=== PATIENT | female | born 1985 | race Caucasian/White ===

== ENCOUNTER 2022-12-05 10:18 | Day surgery (SDC) | payer OTHER, SELFPAY ==
[2022-12-05] VITALS (13 sets, daily range): BP systolic 80–127; BP diastolic 37–72; PULSE 54–70; RESP 12–18; TEMP 36.3–37.1; O2SAT 98–100; BMI 21.5
--- NOTE | 2022-12-05 11:00 | CRLHL7_ITS ---
For Patients: As a result of the Century Cures Act, medical imaging exams and procedure reports are released immediately into your electronic medical record. You may view this report before your referring provider. If you have questions, please contact your health care provider. INDICATION: VAGINAL BLEEDING/CRAMPING TODAY HISTORY: Vaginal bleeding and cramping. COMPARISON: None. TECHNIQUE: Pelvic ultrasound. Endovaginal imaging of the pelvis was obtained. Color Doppler was performed to evaluate blood flow to the ovaries. FINDINGS: There is no intrauterine or extrauterine gestational sac. There is a moderate amount of free fluid in the pelvis. This is primarily anechoic. Some of the fluid has low level internal echoes, as seen on series 1, image [id number]. The right ovary measures 3.9 x 2.2 x 2.9 cm. Probable corpus luteum cyst in the right ovary. Endometrial complex measures 14 mm. The left ovary measures 3.2 x 2.3 x 2.7 cm. On cine imaging, there is indeterminate left adnexal mass, which appears extra ovarian. This is seen on series 1, image [id number], and measures approximately 2 cm in dimension. These findings are suspicious for an ectopic . Suggest gynecologic consultation, and correlation with serum beta HCG. IMPRESSION: 1. No intrauterine gestational sac. 2. Indeterminate extraovarian left adnexal mass, with free fluid in the rectovaginal pouch of Vj. These findings are suspicious for an ectopic . Suggest correlation with serum beta HCG and gynecologic consultation. 3. Per my discussion with Dr. Nino, ED, 12/05/22, 1217 pm, serum beta HCG is pending. The gynecologic service has been contacted. Dictated by Heriberto Louis MD @ 12/05/2022 12:21:22 PM Dictated by: Heriberto Louis MD @ 12/05/2022 12:21:31 (Electronically Signed)
--- NOTE | 2022-12-05 11:01 | ED_ITS ---
HPI - General Adult General Chief complaint: Vaginal Bleeding Stated complaint: 6wks , possible miscarriage Time Seen by Provider: 12/05/22 10:51 History of Present Illness HPI narrative: This 37-year-old female comes in stating that she is about 6 weeks . This morning she had vaginal bleeding with cramping. She had some spotting last week that did not include cramping. This is her 2nd . She has twins that are 2 years old. She is otherwise in good health. Related Data Home Medications Medication Instructions Recorded Confirmed No Known Home Medications 12/05/22 12/05/22 Allergies Allergy/AdvReac Type Severity Reaction Status Date / Time cefaclor [From [facility]] Allergy Verified 12/05/22 10:29 Review of Systems Status of ROS: Reports: 10 or more systems reviewed and unremarkable except as noted in History and below Narrative: Constitutional: No fevers, no weight gain or loss. Eyes: No discharge. No vision changes. HENT: No congestion, no sore throat, no ear pain. Cardiovascular: No chest pain, no palpitations. Respiratory: No shortness of breath, no wheezes, no cough. Gastrointestinal: No vomiting, no diarrhea. Genitourinary: No dysuria, no hematuria. Musculoskeletal: Normal range of motion. Skin: No rashes, no pruritis. Neurological: No dizziness, weakness, sensory change, speech change. Endo/Heme/Allergies: No bruising or bleeding. No polydipsia. Pysch: no suicidality, no anxiety, no insomnia. All other systems reviewed and are negative. Exam Narrative: Exam Narrative: Constitutional: Well-developed, well-nourished, no acute distress. HEENT: Normocephalic, atraumatic. Neck: Normal range of motion. Nontender. Supple. Heart: Regular. No murmurs. Normal rate. Intact distal pulses. Lungs: Clear to auscultation. No chest discomfort. No wheezes, rhonchi, or rales. Abdomen: Normal bowel sounds. No rebound tenderness. Genitalia: Deferred. Back: No midline tenderness. Normal range of motion. Extremities: Normal range of motion. No injury. Skin: Intact. No rash. Warm. No erythema or pallor. Neurologic: No altered sensation. No weakness. Alert and oriented. Psychiatric: No suicidality. No anxiety or depression. No insomnia. Nursing notes and vitals signs are reviewed. Const: Vital Signs, click to edit/add: Vital Signs - 24 hr 12/05/22 10:25 Temperature 98.8 F Pulse Rate [Right Pulse Oximeter] 70 Respiratory Rate 18 Blood Pressure [Ri ght Upper Arm] 127/72 Pulse Oximetry 100 Oxygen Delivery Me thod Room Air Course Vital Signs Vital signs: Initial Vital Signs Temperature 98.8 F 12/05/22 10:25 Temperature Source Temporal Artery Scan 12/05/22 10:25 Pulse Rate 70 12/05/22 10:25 Respiratory Rate 18 12/05/22 10:25 Blood Pressure 127/72 12/05/22 10:25 Blood Pressure Mean 90 12/05/22 10:25 Blood Pressure Position Sitting 12/05/22 10:25 Pulse Oximetry 100 12/05/22 10:25 Oxygen Delivery Method Room Air 12/05/22 10:25 Vital Signs Temperature 98.8 F 12/05/22 10:25 Pulse Rate 70 12/05/22 10:25 Respiratory Rate 18 12/05/22 10:25 Blood Pressure 127/72 12/05/22 10:25 Pulse Oximetry 100 12/05/22 10:25 Oxygen Delivery Method Room Air 12/05/22 10:25 Temperature 98.8 F 12/05/22 10:25 Pulse Rate 70 12/05/22 10:25 Respiratory Rate 18 12/05/22 10:25 Blood Pressure 127/72 12/05/22 10:25 Pulse Oximetry 100 12/05/22 10:25 Oxygen Delivery Method Room Air 12/05/22 10:25 Medical Decision Making MDM Narrative Medical decision making narrative: This patient comes in reporting vaginal bleeding with abdominal pain and cramping. She thinks that she is about 6 weeks gestation in her . She states that she has taken about 5 home tests that were all positive. An ultrasound of pelvic region is acquired and does show no sign of intrauterine but there is fluid around the uterus and a structure suspicious for ectopic . The patient's beta hCG quantitative level returns at 9046. Her blood type is O-positive. Her hemoglobin is reassuring at 14. I did speak with the psychologists physician on-call, Dr. Ron, who is coming in to arrange for laparoscopic surgery. The patient had is having increased pain and did receive an IV dose of Dilaudid 0.5 mg. Lab Data Labs: Lab Results 12/05/22 12/05/22 Range/Units 12:12 12:17 WBC 11.22 H (4.50-11.00) K/uL RBC 4.28 (4.00-5.20) m/uL Hgb 14.0 (12.0-16.0) gm/dL Hct 40.1 (33.0-51.0) % MCV 94 (80-100) fL MCH 33 (26-34) pg MCHC 35 (32-36) gm/dL RDW Coeff of Miguel 11.5 (11.5-15.5) % Plt Count 301 (140-440) K/uL Neut % (Auto) 86.6 H (42.0-72.0) % Lymph % (Auto) 7.7 L (20-44) % [place] % (Auto) 5.2 (0.0-11.0) % Eos % (Auto) 0.1 (0.0-7.0) % Baso % (Auto) 0.2 (0.0-3.0) % Neut # (Auto) 9.70 H (1.7-7.0) K/uL Lymph # (Auto) 0.90 (0.90-2.90) K/uL [place] # (Auto) 0.60 (0.00-0.90) K/UL Eos # (Auto) 0.00 (0.00-0.50) K/uL Baso # (Auto) 0.00 (0.00-0.30) K/uL Abs Immat Gran (auto) 0.00 (0.00-0.30) K/uL Imm/Tot Granulo (auto) 0.2 % Sodium 136 (135-149) mmol/L Potassium 3.6 (3.6-5.1) mmol/L Chloride 102 (96-114) mmol/L Carbon Dioxide 23 (20-32) mmol/L BUN 10 (5-24) mg/dL Creatinine 0.5 (0.5-1.5) mg/dL Estimated Creat Clear 135.61 Estimated GFR 125 ml/min Glucose 94 (60-115) mg/dL Calcium 9.4 (8.4-10.6) mg/dL HCG, Quant 9046.20 mIU/mL Blood Type O Positive Imaging Data US - abdomen: Radiologist's impression: 1. No intrauterine gestational sac. 2. Indeterminate extraovarian left adnexal mass, with free fluid in the rectovaginal pouch of Vj. These findings are suspicious for an ectopic . Suggest correlation with serum beta HCG and gynecologic consultation. Discharge Plan Discharge Clinical Impression: Ectopic Patient Disposition: XFER to OR Condition: Unchanged Prescriptions: No Action No Known Home Medications Follow Up/Referrals: Provider,Not a Local [Primary Care Provider] -
[2022-12-05 12:39] LABS: Basophils Percent Auto 0.2 % (0.0-3.0); Eosinophils Percent Auto 0.1 % (0.0-7.0); Hematocrit 40.1 % (33.0-51.0); Immature Granulocytes Pct Auto 0.2 %; Lymphocytes Percent Auto 7.7 % (20-44); Mean Corpuscular HGB Conc 35 gm/dL (32-36); Mean Corpuscular Hemoglobin 33 pg (26-34); Mean Corpuscular Volume 94 fL (80-100); Monocytes Percent Auto 5.2 % (0.0-11.0); Neutrophils Percent Auto 86.6 % (42.0-72.0); Platelet Count* 301 K/uL (140-440); RDW Coefficient of Variation % 11.5 % (11.5-15.5); Red Blood Count 4.28 m/uL (4.00-5.20); White Blood Count* 11.22 K/uL (4.50-11.00)
[2022-12-05 12:55] LABS: Chloride* 102 mmol/L (96-114); Potassium* 3.6 mmol/L (3.6-5.1); Sodium* 136 mmol/L (135-149)
[2022-12-05 12:58] LABS: Blood Urea Nitrogen* 10 mg/dL (5-24); Carbon Dioxide* 23 mmol/L (20-32); Creatinine* 0.5 mg/dL (0.5-1.5); Est. Creatinine Clearance* 135.61; Estimated Glomerular Filt Rate 125 ml/min; Slide Review Reflex No
[2022-12-05 12:59] LABS: Calcium* 9.4 mg/dL (8.4-10.6); Glucose* 94 mg/dL (60-115)
[2022-12-05] MEDS: HYDROmorphone 0.5 mg/0.5 ml inj IVP (13:43)
[2022-12-05] MEDS: BUPIVACAINE 0.25% 30 ML INJECTION (16:10)
--- NOTE | 2022-12-05 16:28 | W.PM.GYNPROC ---
Procedure Note Date Seen: 12/05/22 Procedure Details: PREOPERATIVE DIAGNOSIS: Suspected ectopic POSTOPERATIVE DIAGNOSIS: Ruptured right tubal PROCEDURE: Laparoscopic right salpingectomy SURGEON: Lennie Ron MD ANESTHESIA: General IV FLUIDS: 800 mL crystalloid URINE OUTPUT: 300 mL EBL: 175 mL FINDINGS: 1. Upon pelvic exam under anesthesia, the cervix and vagina were normal in appearance. Uterus was mobile and anteverted, of normal size and texture. There were no palpable adnexal masses. 2. Upon laparoscopy, survey of the upper abdomen revealed a normal appearance to the inferior edge of the liver, gallbladder and stomach. Bowels were grossly normal appearance. The appendix was retrocecal. Survey of the pelvis revealed 170 cc of liquid and clotted blood in the pelvis. The right Fallopian tube was markedly dilated throughout the midportion and distal aspect, and was actively bleeding through the fimbriated end. The uterus was normal in appearance, as were bilateral ovaries and left Fallopian tube. The cul-de-sac and bladder reflection were normal in appearance. COMPLICATIONS: None PROCEDURE IN DETAIL: Patient was taken to the operating room with IV running. She was positioned in dorsal lithotomy position with her legs fully supported in Yellofin stirrups. General anesthesia was administered. She was prepped and draped in the usual sterile fashion. Bimanual exam was performed for the above-noted findings. Speculum was inserted. A single-toothed uterine manipulator was inserted through the cervix into the lower uterine segment, and affixed to the anterior cervical lip. Speculum was removed. Ko catheter was placed. Patient's legs were placed in neutral position. Attention was turned to patient's abdomen. The infraumbilical area was infiltrated with small amount of Marcaine. An infraumbilical incision was made with a scalpel and carried through to the underlying layer of fascia with a hemostat. The 5 mm Fios Kii trocar was assembled with laparoscope within, and insufflator attached. While tenting up the abdomen manually, the trocar was passed through the anterior abdominal wall into the peritoneal cavity. Trocar was removed. Pneumoperitoneum was achieved. Survey of abdomen and pelvis revealed the above-noted findings. Two additional port sites were created. The first was in the patient's left lower quadrant, just superior medial to the left ASIS. The second was a hand's breath superior to and slightly medial to the first. The third was in the patient's right lower quadrant, just superior medial to the right ASIS. Each was infiltrated with small amount of Marcaine prior to incision. An 11 mm incision was made in the LLQ, and the other was a 5 mm incision, each made after making sure the large vessels were out of harm's way. An 11 mm Fios Kii port was inserted at the LLQ site, and a 5 mm Fios Kii port was inserted in the other, under direct visualization and without complication. The balloon on each of the three ports was inflated, holding each in place. The blood and clot in the pelvis was removed primarily with the suction automatic dry starch operator. The right tube was held away from the pelvic sidewall. It was divided from its blood supply distally using the Thunderbeat device. Dissection was carried laterally to medially through the mesosalpinx, and the tube was ultimately amputated at the right uterine cornua. The specimen was placed along the bladder reflection. An Endo-Catch bag was inserted through the left lower quadrant port and deployed inside the patient. The specimen and some clotted blood left in the pelvis was placed in the Endo-Catch bag, which was cinched closed. This was removed, as was the port, through the left lower quadrant site. Specimen was sent to pathology. The pelvis was inspected closely and no endometriosis was seen. The fascia of the left lower quadrant port was closed with a single stitch of 0 Vicryl using the Humberto-Fatoumata device. The balloons on the remaining 2 ports were deflated and all instruments were removed. Pneumoperitoneum was released and the ports were removed. The skin incisions were closed with a subcuticular stitch of 4-0 Monocryl. Surgical glue was applied above this. Patient tolerated procedure well and was taken to the recovery area in stable condition.
--- NOTE | 2022-12-05 16:38 | P.ANES_ITS ---
Anesthesia Charges Start Date/Time Anesthesia Start Date: 12/05/22 Anesthesia Start Time: 15:04 Stop Date/Time Anesthesia Stop Date: 12/05/22 Anesthesia Stop Time: 16:32 Summary Emergency: PRINCIPAL TECHNICAL SPECIALIST
[2022-12-05] MEDS: LACTATED RINGERS 1000 ML 1,000 ML 125 ML IV (16:45)
[2022-12-05] MEDS: LACTATED RINGERS 1000 ML 1,000 ML 35 ML IV (17:21)
[2022-12-05] MEDS: LACTATED RINGERS 1000 ML 1,000 ML 75 ML IV (17:22)
--- NOTE | 2022-12-05 18:01 | PC.NURSE ---
CALLED [facility] IN [facility] IN [place] TO CANCEL PRESCRIPTIONS NO ONE ABLE TO COOK [employer] PRESCRIPTIONS BEFORE THEIR CLOSING TIME. DR. LOPEZ UPDATED AND OXYCODONE RESENT TO [facility] IN [place] AND PATIENT'S MOTHER TO COOK [employer] BEFORE THEY CLOSE.
[2022-12-05] MEDS: ACETAMINOPHEN 500 MG TABLET 1000 MG PO (18:07)
[2022-12-05] MEDS: OXYCODONE 5 MG TABLET PO (18:07)
[2022-12-05 18:52] LABS: Basophils Percent Auto 0.1 % (0.0-3.0); Hematocrit 33.5 % (33.0-51.0); Hemoglobin* 11.7 gm/dL (12.0-16.0); Immature Granulocytes Pct Auto 0.3 %; Lymphocytes Percent Auto 3.9 % (20-44); Mean Corpuscular HGB Conc 35 gm/dL (32-36); Mean Corpuscular Hemoglobin 33 pg (26-34); Mean Corpuscular Volume 95 fL (80-100); Monocytes Percent Auto 1.1 % (0.0-11.0); Neutrophils Percent Auto 94.6 % (42.0-72.0); Platelet Count* 230 K/uL (140-440); RDW Coefficient of Variation % 11.5 % (11.5-15.5); Red Blood Count 3.53 m/uL (4.00-5.20); White Blood Count* 11.44 K/uL (4.50-11.00)
[2022-12-05 18:53] LABS: Slide Review Reflex No
--- NOTE | 2022-12-05 18:56 | PC.NURSE ---
Shift [id number]- Patient arrives from PACU at approximately 1710. She states pain 7/10, able to hold calm conversation- PRN pain medication and ice administered. updated about low blood pressures- CBC ordered. Patient denies lightheadedness/dizziness, though has not risen from bed. She tolerates toast and water without issue. Lap sites intact.
[2022-12-05] MEDS: ONDANSETRON 2 MG/ML inj 4 MG IVP (20:10)
--- NOTE | 2022-12-05 22:01 | PC.NURSE ---
Discharge: Pt reported nausea and pain 7/10 in abdomen. Ice pack applied, zofran administered, queasy patch applied, lakeisha brendan at bedside. Pt able to ambulate to restroom and don clothing independently. Reported improved nausea. SBP's 80's, improved to 90's prior to discharge. Pt denied any dizziness or nausea. Discharge paperwork, instructions and future appointment discussed. All questions answered. Pt left with mother.
--- NOTE | 2022-12-06 02:36 | PC.NURSE ---
PATIENTS MOM PAULETTE CALLED IN AROUND 0 ASKING FOR ADVICE, PATIENT HAD GOTTEN UP EARLIER IN THE EVENING AND FAINTED. AT SIDE, NO LOSS OF CONSCIOUSNESS, MINIMAL BLOOD LOSS SINCE SURGERY, IS TAKING PRESCRIBED PAIN MEDICATION AND NOT EATING MUCH, MONOGRAM AND LETTER PASTER ADVISED PATIENTS MOM TO HAVE THE PATIENT EAT AND DRINK ESPECIALLY WHILE TAKING PAIN MEDICATION, CHANGE POSITIONS SLOWLY, MONOGRAM AND LETTER PASTER ALSO SPOKE WITH [facility] WHO ADVISED IF THE EVENT HAPPENS AGAIN TO GO INTO THE ER OR IF THAT PATIENT FEELS LIKE PASSING OUT/LIGHTHEADED OR DIZZY CONSTANTLY TO ALSO GO INTO ER.
== END 2022-12-05 21:15 | disposition home or self-care (01) ==
LOC: ED 14:28 → SS 15:03 → MEDSURG 17:21
PROVIDERS: Emergency Provider Emergency Medicine Emergency Medical Services; Visit Provider Obstetrics & Gynecology
PROC: (CPT 49320; principal; 2022-12-05 15:00)
DX: O00.101 Right tubal pregnancy without intrauterine pregnancy (principal)
CPT/HCPCS: 59151; 00840; 36415; 76817; 80048; 84702; 85025; 86900; 86901; 88305; 99140; 99284; A9270; J0330; J0665; J1100; J1170; J1200; J1885; J2250; J2405; J2704; J2710; J3010; J3475; J3490; J7120